=== PATIENT | female | born 1945 | race Caucasian/White ===

== ENCOUNTER → 2016-08-23 | Outpatient (CLI) | payer OTHER ==
--- NOTE | 2016-08-23 16:48 | MA ---
Screening Digital Mammogram With iCAD Analysis Clinical Indications: Routine screening. Her paternal grandmother was diagnosed with breast cancer in her 70s. Technique: Standard cephalocaudal and mediolateral oblique projections were obtained. This examinatio n was processed by the iCAD computer aided detection system. Comparison: July 2015, June 2014, May 2013, December 2011, December 2009, November 2008, July 2007. Breast density: Type C; Heterogeneously dense. Findings: CAD was reviewed. No masses, suspicious calcifications or other signs of malignancy are id entified. There has been no significant change in the appearance of either breast. Impression: Negative mammogram. BI-RADS 1. Recommendation: Routine mammographic screening in one year as long as physical examination is negativ e in this patient with heterogeneously dense breasts. [facility] will send a result letter to the patient. Dense breast parenchyma diminishes mammographic sensitivity. Negative mammography should not preclude additional workup of a clinically suspicious finding. The patient's information is entered into a reminder system with a target due date for her next mammo gram.
== END ==
LOC: CIMAGING 12:13
DX: Z12.31 Encounter for screening mammogram for malignant neoplasm of breast (principal); Z80.3 Family history of malignant neoplasm of breast
CPT/HCPCS: G0202

== ENCOUNTER 2017-07-13 17:41 | Inpatient (IN) | payer OTHER ==
[2017-07-13] MEDS ORDERED: ONDANSETRON 4 MG/2 ML VIAL IVP ONE ×2 (18:11→21:27)
[2017-07-13] MEDS ORDERED: NS 1,000 ML IV ONE ×2 (18:11→18:46)
--- NOTE | 2017-07-13 18:27 | CPEKG ---
Heart Rate: 77 RR Interval: 779 P-R Interval: 152 QRSD Interval: 102 QT Interval: 404 QTC Interval: 458 P [place]: 95 QRS [place]: 14 T Wave [place]: 52 EKG Severity - ABNORMAL ECG - EKG Impression: SINUS RHYTHM EKG Impression: MULTIPLE VENTRICULAR PREMATURE COMPLEXES EKG Impression: BORDERLINE R WAVE PROGRESSION, ANTERIOR LEADS Electronically Signed By: Kwadwo Butler 13-Jul-2017 20:54:35
[2017-07-13] MEDS ORDERED: HYDROmorphONE/DILAUDID 1 MG/ML INJ IVP ONE ×3 (18:34→21:04)
--- NOTE | 2017-07-13 18:40 | EDPHY ---
H & P Time Seen by Provider: 07/13/17 18:20 HPI/ROS: Chief complaint. Abdominal pain HPI. 71-year-old female presents emergency department with abdominal pain that began at noon. She had a normal morning. Since then she has had progressive, severe abdominal pain. She describes as crampy and sharp and constant in the mid low abdomen. No radiation to her back. Nausea but no vomiting. No gas or stool per rectum. No similar symptoms previously. Previous appendectomy hysterectomy, oophorectomy. No fever. No urinary symptoms. No chest discomfort or trouble breathing. ROS Constitutional. no fever/chills, no weakness Eyes. no problems with vision ENT. no sore throat, no nasal drainage Cardiovascular. no chest pain Respiratory. no shortness of breath, no cough Abdominal. Abdominal pain with nausea but no vomiting or diarrhea . no problems urinating MS. no calf pain/swelling, no neck/back pain, no joint pain Skin. no rash Lymph. no swollen glands Neuro. no headache, no dizziness, no difficulty walking or with speech Past Medical/Surgical History: Hysterectomy, appendectomy, hypertension, coronary artery disease Social History: , nonsmoker, no alcohol Smoking Status: Former smoker Physical Exam: General Appearance: Alert well-developed female moderate to severe distress vital signs are stable Eyes: Pupils equal and round no pallor or injection. ENT, Mouth: Mucous membranes are moist. Respiratory: There are no retractions, lungs are clear to auscultation. Cardiovascular: Regular rate and rhythm. Gastrointestinal: Abdomen is soft and diffusely tender. No masses. Decreased bowel sounds Neurological: Awake and alert, sensory and motor exams grossly normal. Skin: Warm and dry, no rashes. Musculoskeletal: Neck is supple nontender. Extremities symmetrical, full range of motion. Psychiatric: Patient is oriented X 3, there is no agitation. Constitutional: Initial Vital Signs Heart Rate 70 07/13/17 17:52 Respiratory Rate 16 07/13/17 17:52 Blood Pressure 172/71 H 07/13/17 17:52 O2 Sat (%) 99 07/13/17 17:52 O2 Delivery Mode Nasal Cannula O2 (L/minute) 2 Allergies/Adverse Reactions: No Known Allergies Allergy (Verified 07/13/17 17:51) Home Medications: Medication Instructions Recorded Fluticasone Nasal [Flonase Nasal 04/14/14 [place]] Gabapentin [Neurontin 300 MG (*)] 04/14/14 Lisinopril [Zestril 20 mg (*)] 04/14/14 Aspirin 05/03/16 Atorvastatin Calcium [Lipitor 40 05/03/16 mg (*)] Herbals/Supplements -Info Only 05/03/16 Acetaminophen Extra Strength 2 tab PO BID 05/06/16 Medical Decision Making - Diagnostics Imaging Results: Imaging Impressions Abdomen CT 07/13/17 18:47 Impression: 1. Dilated small bowel in the left lower quadrant with transition points in the left pelvis, consistent with small bowel obstruction. 2. Small volume of ascites. 3. Gallbladder distention without evidence of cholecystitis. 4. Severe degenerative change in the lumbar spine with multilevel spinal canal narrowing. 5. Additional findings as above. Findings discussed with ALEX QUILES 07/13/2017 at 19:33. CT shows small bowel obstruction reviewed by me and discussed with Dr. Stone Procedures: IV normal saline. Dilaudid for pain. Zofran for nausea I-STAT for creatinine for CT ED Course/Re-evaluation: Serial evaluations and then re-evaluation again at 7:45 p.m.. The patient, her , and I discussed imaging study results, treatment plan including recommendation for admission. They expressed understanding and agreement I consulted and discussed case with Dr. Donovan, on-call for surgery who will see the patient in the emergency department Differential Diagnosis: I considered volvulus, small-bowel obstruction, aortic dissection - Data Points Laboratory Results: Laboratory Results 07/13/17 18:10 07/13/17 18:10 07/13/17 07/13/17 07/13/17 18:10 18:10 18:10 WBC 7.94 10^3/uL 10^3/uL (3.80-9.50) RBC 3.90 10^6/uL L 10^6/uL (4.18-5.33) Hgb 14.2 g/dL g/dL (12.6-16.3) Hct 40.5 % % (38.0-47.0) MCV 103.8 fL H fL (81.5-99.8) MCH 36.4 pg H pg (27.9-34.1) MCHC 35.1 g/dL g/dL (32.4-36.7) RDW 12.3 % % (11.5-15.2) Plt Count 202 10^3/uL 10^3/uL (150-400) MPV 9.6 fL fL (8.7-11.7) Neut % (Auto) 63.4 % % (39.3-74.2) Lymph % (Auto) 28.1 % % (15.0-45.0) [place] % (Auto) 7.2 % % (4.5-13.0) Eos % (Auto) 0.5 % L % (0.6-7.6) Baso % (Auto) 0.5 % % (0.3-1.7) Nucleat RBC Rel Count 0.0 % % (0.0-0.2) Absolute Neuts (auto) 5.04 10^3/uL 10^3/uL (1.70-6.50) Absolute Lymphs (auto) 2.23 10^3/uL 10^3/uL (1.00-3.00) Absolute Monos (auto) 0.57 10^3/uL 10^3/uL (0.30-0.80) Absolute Eos (auto) 0.04 10^3/uL 10^3/uL (0.03-0.40) Absolute Basos (auto) 0.04 10^3/uL 10^3/uL (0.02-0.10) Absolute Nucleated RBC 0.00 10^3/uL 10^3/uL (0-0.01) Immature Gran % 0.3 % % (0.0-1.1) Immature Gran # 0.02 10^3/uL 10^3/uL (0.00-0.10) PT 12.5 SEC SEC (12.0-15.0) INR 0.91 (0.83-1.16) APTT 29.8 SEC SEC (23.0-38.0) Sodium 141 mEq/L mEq/L (134-144) Potassium 3.8 mEq/L mEq/L (3.5-5.2) Chloride 100 mEq/L mEq/L (97-110) Carbon Dioxide 27 mEq/l mEq/l (22-31) Anion Gap 14 mEq/L mEq/L (8-16) BUN 17 mg/dL mg/dL (7-23) Creatinine 0.7 mg/dL mg/dL (0.6-1.0) Estimated GFR > 60 Glucose 106 mg/dL H mg/dL (70-100) Calcium 10.1 mg/dL mg/dL (8.5-10.4) Total Bilirubin 1.7 mg/dL H mg/dL (0.1-1.4) Conjugated Bilirubin 0.3 mg/dL mg/dL (0.0-0.5) Unconjugated Bilirubin 1.4 mg/dL H mg/dL (0.0-1.1) AST 33 IU/L IU/L (14-46) ALT 48 IU/L IU/L (9-52) Alkaline Phosphatase 84 IU/L IU/L (38-126) Troponin I < 0.012 ng/mL ng/mL (0.000-0.034) Total Protein 7.5 g/dL g/dL (6.3-8.2) Albumin 4.6 g/dL g/dL (3.5-5.0) Lipase 19 IU/L L IU/L (23-300) Medications Given: Discontinued Medications Hydromorphone HCl (Dilaudid) 1 mg IVP EDNOW ONE Stop: 07/13/17 18:35 Last Admin: 07/13/17 18:37 Dose: 1 mg Hydromorphone HCl (Dilaudid) 1 mg IVP EDNOW ONE Stop: 07/13/17 18:47 Last Admin: 07/13/17 18:53 Dose: 1 mg Sodium Chloride (Ns) 1,000 mls @ 0 mls/hr IV ONCE ONE PRN Reason: Wide Open Stop: 07/13/17 18:12 Last Admin: 07/13/17 18:20 Dose: 1,000 mls Sodium Chloride (Ns) 1,000 mls @ 0 mls/hr IV EDNOW ONE; Wide Open PRN Reason: Protocol Stop: 07/13/17 18:47 Last Admin: 07/13/17 18:53 Dose: 1,000 mls Ondansetron HCl (Zofran) 4 mg IVP EDNOW ONE Stop: 07/13/17 18:12 Last Admin: 07/13/17 18:20 Dose: 4 mg Departure - Departure Disposition: [facility] Acute Clinical Impression: Small bowel obstruction Condition: Fair Referrals: Kaya Gonzalez MD [Primary Care Provider] - As per Instructions
[2017-07-13] MEDS ORDERED: IOPAMIDOL (ISOVUE-300) 100 ML BTL ONE (18:49)
[2017-07-13 18:53] LABS: % IMMATURE GRANULYOCYTES 0.3 % (0.0-1.1); ABSOLUTE IMMATURE GRANULOCYTES 0.02 10^3/uL (0.00-0.10); ADD DIFF? NO; ADD MORPH? NO; ADD SCAN? NO; ATYPICAL LYMPHOCYTE FLAG 0 (0-99); FRAGMENT RBC FLAG 0 (0-99); HEMATOCRIT 40.5 % (38.0-47.0); HEMOGLOBIN 14.2 g/dL (12.6-16.3); LEFT SHIFT FLG 0 (0-99); LIPEMIA HEMOLYSIS FLAG 90 (0-99); MEAN CELL HEMOGLOBIN 36.4 pg (27.9-34.1); MEAN CELL HEMOGLOBIN CONCENTR. 35.1 g/dL (32.4-36.7); MEAN CELL VOLUME 103.8 fL (81.5-99.8); MEAN PLATELET VOLUME 9.6 fL (8.7-11.7); PLATELET CLUMPS FLAG 0 (0-99); PLATELET COUNT 202 10^3/uL (150-400); RED CELL DISTRIBUTION WIDTH 12.3 % (11.5-15.2)
[2017-07-13 18:59] LABS: ALANINE AMINOTRANSFERASE 48 IU/L (9-52); ALBUMIN 4.6 g/dL (3.5-5.0); ALKALINE PHOSPHATASE 84 IU/L (38-126); ANION GAP 14 mEq/L (8-16); ASPARTATE AMINOTRANSFERASE 33 IU/L (14-46); BILIRUBIN,TOTAL 1.7 mg/dL (0.1-1.4); BILIRUBIN-CONJUGATED 0.3 mg/dL (0.0-0.5); BILIRUBIN-UNCONJUGATED 1.4 mg/dL (0.0-1.1); CALCIUM 10.1 mg/dL (8.5-10.4); CARBON DIOXIDE 27 mEq/l (22-31); CHLORIDE 100 mEq/L (97-110); CREATININE 0.7 mg/dL (0.6-1.0); GLOMERULAR FILTRATION RATE > 60; GLUCOSE 106 mg/dL (70-100); POTASSIUM 3.8 mEq/L (3.5-5.2); SODIUM 141 mEq/L (134-144); TOTAL PROTEIN 7.5 g/dL (6.3-8.2)
[2017-07-13 19:11] LABS: TROPONIN I < 0.012 ng/mL (0.000-0.034)
[2017-07-13 19:17] LABS: INR 0.91 (0.83-1.16); PROTIME(PATIENT) 12.5 SEC (12.0-15.0)
[2017-07-13 19:18] LABS: APTT 29.8 SEC (23.0-38.0)
[2017-07-13] MEDS ORDERED: BUPIVACAINE 0.5% 30 ML SDV ONE (21:04)
[2017-07-13] MEDS ORDERED: LIDOCAINE 2% 5 ML SDV ONE (21:17)
[2017-07-13] MEDS ORDERED: PROPOFOL 200 MG/20 ML VIAL ONE (21:17)
[2017-07-13] MEDS ORDERED: ROCURONIUM 50 MG/5 ML VIAL ONE (21:17)
[2017-07-13] MEDS ORDERED: ONDANSETRON 4 MG/2 ML VIAL IVP PRN ×2 (21:22→23:43)
[2017-07-13] MEDS ORDERED: LR 500 ML IV PRN (21:22)
[2017-07-13] MEDS ORDERED: NALOXONE HCL 0.4 MG/ML INJ IVP PRN (21:22)
[2017-07-13] MEDS ORDERED: HYDROmorphONE/DILAUDID 1 MG/ML INJ IVP PRN (21:22)
[2017-07-13] MEDS ORDERED: ALBUTEROL 3 ML DEYVIAL IH PRN (21:22)
[2017-07-13] MEDS ORDERED: ceFAZolin 2 GM in D5W 100 ML IV ONE (21:24)
--- NOTE | 2017-07-13 21:24 | PDANEPAE ---
ANE History of Present Illness Laparoscopic Lysis of Adhesion ANE Past Medical History - Cardiovascular History Hx Hypertension: Yes Hx Arrhythmias: No Hx Chest Pain: No Hx Coronary Artery / Peripheral Vascular Disease: Yes Hx CHF / Valvular Disease: No Hx Palpitations: No Cardiovascular History Comment: cad. stents x2 - Pulmonary History Hx COPD: No Hx Asthma/Reactive Airway Disease: No Hx Recent Upper Respiratory Infection: No Hx Oxygen in Use at Home: No Hx Sleep Apnea: No - Neurologic History Hx Cerebrovascular Accident: No Hx Seizures: No Hx Dementia: No Neurologic History Comment: raynauds - Endocrine History Hx Diabetes: No - Renal History Hx Renal Disorders: No - Liver History Hx Hepatic Disorders: No - Neurological & Psychiatric Hx Hx Neurological and Psychiatric Disorders: No - Cancer History Hx Cancer: No - Congenital Disorder History Hx Congenital Disorders: No - GI History Hx Gastrointestinal Disorders: Yes Gastrointestinal History Comment: hx of reflux. hx of polyps - Other Health History Other Health History: none - Chronic Pain History Chronic Pain: No - Surgical History Prior Surgeries: stents x2. colon with Raju 05/24/13. colon with Bersentes 26/05. acdf c6-7 c7-t2 with Nabeel 02/15/11. hysterectomy. appy. repair of left tib/ fib ANE Review of Systems Review of Systems: ANE Patient History - Allergies Allergies/Adverse Reactions: No Known Allergies Allergy (Verified 07/13/17 17:51) - Home Medications Home Medications: Fluticasone Nasal [Flonase Nasal [place]] 2 sprays NASAL HS 04/14/14 [Last Taken 07/12/17] Gabapentin [Neurontin 300 MG (*)] 600 mg PO BID 04/14/14 [Last Taken 07/13/17] Atorvastatin Calcium [Lipitor 40 mg (*)] 40 mg PO HS 05/03/16 [Last Taken ] Acetaminophen [Tylenol ES 500 mg (*)] 1,000 mg PO BID 07/13/17 [Last Taken 07/13] Ascorbic Acid [Vitamin C 500 mg (*)] 1,000 mg PO DAILY 07/13/17 [Last Taken Unknown] Aspirin [Aspirin 81mg (*)] 81 mg PO HS 07/13/17 [Last Taken 07/12/17] Cholecalciferol Vit D3 [Vitamin D3 (*)] 1,000 units PO DAILY 07/13/17 [Last Taken Unknown] Gabapentin [Neurontin 300 MG (*)] 600 mg PO DAILY PRN 07/13/17 [Last Taken Unknown] Herbals/Supplements -Info Only 1 ea PO DAILY 07/13/17 [Last Taken Unknown] Losartan Potassium [Cozaar 25 mg (*)] 25 mg PO HS 07/13/17 [Last Taken 07/12/17] Multivitamins [Multivitamin (*)] 1 each PO DAILY 07/13/17 [Last Taken Unknown] Pantoprazole Sodium 20 mg PO DAILY 07/13/17 [Last Taken Unknown] - Smoking Hx Smoking Status: Former smoker - Family Anes Hx Family Hx Anesthesia Complications: sister and daughter wake up with anesthesia ANE Labs/Vital Signs - Labs Result Diagrams: 07/13/17 18:10 07/13/17 18:10 - Vital Signs Blood Pressure: 139/54 Heart Rate: 68 Respiratory Rate: 18 O2 Sat (%): 99 ANE Physical Exam - Airway Neck exam: FROM Mallampati Score: Class 2 - Pulmonary Pulmonary: clear to auscultation - Cardiovascular Cardiovascular: regular rate and rhythym - ASA Status ASA Status: III ANE Anesthesia Plan Anesthesia Plan: general endotracheal anesthesia
[2017-07-13] MEDS ORDERED: ceFAZolin 2 GM/SWFI 2 GM/20 ML SYR IVP ONE (21:30)
[2017-07-13] MEDS ORDERED: LR 1,000 ML IV ONE (21:38)
[2017-07-13] MEDS ORDERED: fentaNYL 100 MCG/2 ML INJ ONE ×2 (21:52→23:45)
--- NOTE | 2017-07-13 21:54 | GHP ---
[f rep st] HISTORY AND PHYSICAL DATE OF ADMISSION: 07/13/2017 CHIEF COMPLAINT: Small bowel obstruction. HISTORY OF PRESENT ILLNESS: The patient is a 71-year-old woman who had a normal bowel movement this morning. She developed abrupt onset of abdominal pain that she initially thought was a gas pain. It worsened in severity, and she started developing nausea. She stopped passing flatus. Her pain escalated so much that she was shaking by time she presented to the emergency room. She has had 2 doses of Dilaudid since being in the ER, and although her overall pain is better, she still has pain to palpation in the left lower quadrant, to percussion and palpation. She had a CT scan of her abdomen and pelvis that showed an abrupt transition in the left lower quadrant with mesenteric edema. PAST MEDICAL HISTORY: Hypertension, hyperlipidemia, coronary artery disease. PAST SURGICAL HISTORY: Hysterectomy, appendectomy. SOCIAL HISTORY: She is . She has a daughter. She is a nonsmoker. REVIEW OF SYSTEMS: 10-point review of systems negative except per HPI. PHYSICAL EXAMINATION: VITAL SIGNS: 36.6, 68, 139/54, 18, 99%. GENERAL: Pleasant, well-nourished, well-groomed woman, lying in bed on gurney, at bedside. HEENT: Normocephalic. No gross hearing deficits. Mucous membranes moist. Pupils equal and round. No scleral icterus. LUNGS: Clear to auscultation bilaterally. No increased work of breathing. CARDIAC: Regular rate. ABDOMEN: I did not appreciate any bowel sounds. She is somewhat soft, but she is distinctly tender in the left lower quadrant to percussion as well as to palpation. SKIN: Warm and dry. PSYCHIATRIC: Mood and affect normal. NEUROLOGIC: Grossly intact. LAB RESULTS: Reviewed, per HPI. IMPRESSION/PLAN: The patient is a 71-year-old woman with acute bowel obstruction. We discussed NG placement. We also discussed going to the OR for laparoscopy, possible laparotomy. I am in favor of early operative intervention , as she still has pain despite IV pain medications that correlates to the findings on the CT with a high-grade transition point. We discussed that this could be a negative laparoscopy or may need a laparotomy. We also discussed that small bowel resection may be needed. We discussed the risks and benefits including, but not limited to, stroke, heart attack, , blood clots, infection, bleeding, damage to surrounding structures. We spent time discussing NG decompression. She had her questions answered to her satisfaction and would like to proceed with operating room thank you. /[id number]/MODL MAITE
[2017-07-13] MEDS ORDERED: ONDANSETRON 4 MG/2 ML VIAL ONE (22:34)
[2017-07-13] MEDS ORDERED: DEXAMETHASONE 4 MG/ML VIAL ONE (22:34)
[2017-07-13] MEDS ORDERED: SUGAMMADEX SODIUM 500 MG/5 ML VIAL IVP ONE (23:28)
--- NOTE | 2017-07-13 23:40 | POSTANESTH ---
Post Anesthetic Evaluation Cardiovascular Status: Normal, Stable Respiratory Status: Normal, Stable Level of Consciousness/Mental Status: Can Participate in Eval, Alert and Oriented Pain Control: Adequate, Prn Tx Ordered Nausea/Vomiting Control: Adequate, Prn Tx Ordered Complications Possibly Related to Anesthesia: None Noted
[2017-07-13] MEDS ORDERED: ACETAMINOPHEN 325 MG TAB PO PRN (23:43)
--- NOTE | 2017-07-13 23:47 | POSTOPPROG ---
Post Op Note Date of Operation: 07/13/17 Surgeon: Patricia Donovan Anesthesiologist: suzanne Anesthesia: GET(General Endotracheal) Pre-op Diagnosis: small bowel obstruction Post-op Diagnosis: complete sbo Indication: 71 yo with abdominal pain and distinct transition point Procedure: lap lysis of adhesions Findings: omentum circumferential around small bowel, fluid in pelvis Inf/Abcess present in the surg proc area at time of surgery?: No EBL: Minimal
[2017-07-13] MEDS: fentaNYL 100 MCG/2 ML INJ IVP PRN (23:49)
[2017-07-14] MEDS: fentaNYL 100 MCG/2 ML INJ IVP PRN (00:14)
[2017-07-14] MEDS: KETOROLAC 15 MG/1 ML SDV IVP SCH ×5 (00:47→23:36)
[2017-07-14] MEDS: D5W 1/2 NS W/ 20 KCl/L 1,000 ML IV SCH ×3 (00:49→23:37)
[2017-07-14 05:13] LABS: % IMMATURE GRANULYOCYTES 0.4 % (0.0-1.1); ABSOLUTE IMMATURE GRANULOCYTES 0.04 10^3/uL (0.00-0.10); ADD DIFF? NO; ADD MORPH? NO; ADD SCAN? NO; ATYPICAL LYMPHOCYTE FLAG 0 (0-99); FRAGMENT RBC FLAG 0 (0-99); HEMATOCRIT 34.5 % (38.0-47.0); LEFT SHIFT FLG 0 (0-99); LIPEMIA HEMOLYSIS FLAG 90 (0-99); MEAN CELL HEMOGLOBIN 36.8 pg (27.9-34.1); MEAN CELL HEMOGLOBIN CONCENTR. 34.8 g/dL (32.4-36.7); MEAN CELL VOLUME 105.8 fL (81.5-99.8); MEAN PLATELET VOLUME 9.2 fL (8.7-11.7); PLATELET CLUMPS FLAG 0 (0-99); PLATELET COUNT 180 10^3/uL (150-400); RED BLOOD CELL COUNT 3.26 10^6/uL (4.18-5.33); RED CELL DISTRIBUTION WIDTH 12.2 % (11.5-15.2)
[2017-07-14 05:32] LABS: ANION GAP 9 mEq/L (8-16); CALCIUM 8.6 mg/dL (8.5-10.4); CARBON DIOXIDE 26 mEq/l (22-31); CHLORIDE 105 mEq/L (97-110); CREATININE 0.7 mg/dL (0.6-1.0); GLOMERULAR FILTRATION RATE > 60; GLUCOSE 165 mg/dL (70-100); POTASSIUM 4.6 mEq/L (3.5-5.2); SODIUM 140 mEq/L (134-144)
--- NOTE | 2017-07-14 07:56 | GOP ---
[f rep st] OPERATIVE REPORT DATE OF OPERATION: 07/13/2017 SURGEON: Patricia Donovan MD ANESTHESIA: General. ANESTHESIOLOGIST: Rudy Thapa DO. PREOPERATIVE DIAGNOSIS: Small-bowel obstruction. POSTOPERATIVE DIAGNOSIS: Complete small bowel obstruction. PROCEDURE PERFORMED: Laparoscopy with lysis of adhesions. FINDINGS: Inflamed loop of small bowel with transition point due to an adhesive band. SPECIMENS: Peritoneal fluid. ESTIMATED BLOOD LOSS: Minimal. INDICATIONS: The patient is a 71-year-old woman, who presented to the hospital with abdominal pain that was not controlled at home. She presented to the ER and a CT scan showed a distinct transition point in the left lower quadrant. Due to her continued pain despite pain medications and the pain being in the location of the high-grade bowel obstruction I elected to take her to the operating room. DESCRIPTION OF PROCEDURE: Patient was brought into the operating room, placed supine on the table, and general anesthesia was administered. Her abdomen was prepped and draped in the usual sterile fashion. I infiltrated all sites with 0.5% Marcaine prior to making incisions. I made an incision by her umbilicus. I elevated it. I inserted the Veress needle. It passed the hang drop test. I explored her abdomen. She did have some omentum adhered to her anterior midline wall as well as a loop of bowel in her right lower quadrant. I placed 2 additional 5 mm trocars on the right side. Using Endo Jennifer I removed the loop of bowel from the anterior abdominal wall. I was able to visualize each side of the omentum and using the Harmonic reduced the omentum from the anterior abdominal wall. I then could explore her abdomen further and I found a large loop of extremely congested bowel. As I examined this further she had a large piece of mesentery mixed with omentum completely surrounding the mid small bowel causing a near complete bowel obstruction. I was able to lyse this adhesion with scissors. The bowel was initially extremely congested. While seeing if the bowel would recover, I explored the remaining part of her abdomen and did not find additional abnormalities. I elected to make a small incision to bring the bowel to the surface to palpate it and make sure that there were no other concerns. I divided the skin subcutaneous tissue. I elevated the fascia, divided this, and I entered the peritoneal cavity. I placed a small Suraj wound protector. I extracorporealized this segment of small bowel. It was continuing to look healthier. I placed a Doppler on the small vessels and was able to hear blood flow. As the bowel was returning nicely to its normal color and diameter I elected not to perform a small bowel resection. I returned the bowel to the abdominal cavity. I closed the fascia with 0 PDS. I closed skin with 3-0 Vicryl followed by 4-0 Monocryl. I closed the port sites with 4-0 Monocryl. Dermabond applied. She was awakened in the operating room, extubated, transferred to PACU in stable condition. /[id number]/MODL MTDD
[2017-07-14] MEDS ORDERED: BENZOCAINE UNIT DOSE SPRAY HURRICAINE MM PRN (10:31)
[2017-07-14] MEDS: CEPACOL LOZENGE PO PRN ×3 (10:51→19:54)
--- NOTE | 2017-07-14 14:43 | ASMTCMCOM ---
CM Note CM Note Notes: Spoke w/RN, anticipate pt will dc w/support of when medically stable. CM available for any changes. Date Signed: 07/14/2017 02:43 PM Electronically Signed By:Lashay Smith RN
--- NOTE | 2017-07-14 17:25 | SOAPPROG ---
SOAP Progress Note Assessment/Plan: Assessment/Plan: 71yo F POD#1 s/p lap lysis of adhesion for complete SBO NG tube in place - continue to suction Pain controlled Small amount of flatus earlier today Dispo: continue inpatient until return of bowel function S: NG tube is extremely uncomfortable at nose and in throat. pain in abdomen when she gets up to walk. no nausea. O: laying in bed, uncomfortably holding NG tube NG R nare - brownish appearing output No increased WOB Abd softly distended, hypoactive BS, incisions CDI Objective: Vital Signs Temp Pulse Resp BP Pulse Ox 37.0 C 67 14 136/55 H 98 07/14/17 16:00 07/14/17 16:00 07/14/17 16:00 07/14/17 16:00 07/14/17 16:00 Laboratory Results 07/14/17 04:45 07/14/17 04:45 07/13/17 07/14/17 07/15/17 05:59 05:59 05:59 Intake Total 2000 Output Total 0 Balance 1999 PT 12.5 SEC (12.0-15.0) 07/13/17 18:10 INR 0.91 (0.83-1.16) 07/13/17 18:10 ICD10 Worksheet Patient Problems: Problems Problem Status Onset Small bowel obstruction Acute Angina pectoris Acute CAD (coronary artery disease) Acute
[2017-07-15] MEDS: KETOROLAC 15 MG/1 ML SDV IVP SCH ×3 (05:30→17:43)
[2017-07-15] MEDS: CEPACOL LOZENGE PO PRN ×3 (05:33→11:27)
--- NOTE | 2017-07-15 13:17 | SOAPPROG ---
SOAP Progress Note Assessment/Plan: Assessment: STATUS POST HEAL LYSIS FOR SMALL BOWEL OBSTRUCTION/DOING WELL/POSITIVE FLATUS/ MODERATE NG OUTPUT WOUND OKAY/ABDOMEN SOFT WITH POSITIVE BOWEL SOUNDS Plan: CLAMP NG AND IF TOLERATED START CLEAR LIQUIDS 07/15/17 13:17 Objective: Vital Signs Temp Pulse Resp BP Pulse Ox 36.4 C 62 18 142/66 H 98 07/15/17 12:03 07/15/17 12:03 07/15/17 12:03 07/15/17 12:03 07/15/17 12:03 Laboratory Results 07/14/17 04:45 07/14/17 04:45 07/14/17 07/15/17 07/16/17 05:59 05:59 05:59 Intake Total 1999 1180 Output Total 0 810 Balance 1999 370 PT 12.5 SEC (12.0-15.0) 07/13/17 18:10 INR 0.91 (0.83-1.16) 07/13/17 18:10 ICD10 Worksheet Patient Problems: Problems Problem Status Onset Small bowel obstruction Acute Angina pectoris Acute CAD (coronary artery disease) Acute
[2017-07-15] MEDS: D5W 1/2 NS W/ 20 KCl/L 1,000 ML IV SCH ×2 (17:43→21:53)
[2017-07-16] MEDS: KETOROLAC 15 MG/1 ML SDV IVP SCH ×4 (01:04→17:08)
[2017-07-16] MEDS: CEPACOL LOZENGE PO PRN ×2 (10:55→17:07)
--- NOTE | 2017-07-16 11:14 | SOAPPROG ---
SOAP Progress Note Assessment/Plan: Assessment: STATUS POST HEAL LYSIS FOR SMALL BOWEL OBSTRUCTION/DOING WELL/POSITIVE FLATUS/ MODERATE NG OUTPUT WOUND OKAY/ABDOMEN SOFT WITH POSITIVE BOWEL SOUNDS Plan: CLAMP NG AND IF TOLERATED START CLEAR LIQUIDS 07/15/17 13:17 07/16/17 11:13 abd soft/ wound ok/ afebrile/ tolerated ng clamping/ +flatus/ plan dc ng and start clears Objective: Vital Signs Temp Pulse Resp BP Pulse Ox 36.7 C 73 18 154/63 H 90 L 07/16/17 08:00 07/16/17 08:00 07/16/17 08:00 07/16/17 08:00 07/16/17 08:00 Laboratory Results 07/14/17 04:45 07/14/17 04:45 07/15/17 07/16/17 07/17/17 05:59 05:59 05:59 Intake Total 1180 900 Output Total 810 1300 Balance 370 -400 PT 12.5 SEC (12.0-15.0) 07/13/17 18:10 INR 0.91 (0.83-1.16) 07/13/17 18:10 ICD10 Worksheet Patient Problems: Problems Problem Status Onset Small bowel obstruction Acute Angina pectoris Acute CAD (coronary artery disease) Acute
[2017-07-17] MEDS: KETOROLAC 15 MG/1 ML SDV IVP SCH ×2 (00:38→06:13)
--- NOTE | 2017-07-17 07:36 | SOAPPROG ---
SOAP Progress Note Assessment/Plan: Assessment: STATUS POST HEAL LYSIS FOR SMALL BOWEL OBSTRUCTION/DOING WELL/POSITIVE FLATUS/ MODERATE NG OUTPUT WOUND OKAY/ABDOMEN SOFT WITH POSITIVE BOWEL SOUNDS Plan: CLAMP NG AND IF TOLERATED START CLEAR LIQUIDS 07/15/17 13:17 07/16/17 11:13 abd soft/ wound ok/ afebrile/ tolerated ng clamping/ +flatus/ plan dc ng and start clears 07/17/17 07:35 feels great/ +flatus/ afebrile/ advance diet/ home today Objective: Vital Signs Temp Pulse Resp BP Pulse Ox 36.7 C 73 12 159/74 H 92 07/17/17 04:00 07/17/17 04:00 07/17/17 04:00 07/17/17 04:00 07/17/17 04:00 Laboratory Results 07/14/17 04:45 07/14/17 04:45 07/16/17 07/17/17 07/18/17 05:59 05:59 05:59 Intake Total 900 1250 Output Total 1300 Balance -400 1250 PT 12.5 SEC (12.0-15.0) 07/13/17 18:10 INR 0.91 (0.83-1.16) 07/13/17 18:10 ICD10 Worksheet Patient Problems: Problems Problem Status Onset Small bowel obstruction Acute Angina pectoris Acute CAD (coronary artery disease) Acute
[2017-07-17 08:30] VITALS: BP 157/74; PULSE 69; RESP 18; TEMP 97.9; O2SAT 98
--- NOTE | 2017-07-17 14:50 | ASDISCHSUM ---
Discharge Information Plan Status:Home with No Needs Medically Cleared to Leave:07/16/2017 Discharge Date:07/17/2017 10:53 AM CM D/C Disposition: ADT D/C Disposition:Home, Routine, Self-Care Projected Discharge Date:07/17/2017 12:00 AM Transportation at D/C: Discharge Delay Reason: Follow-Up Date:07/17/2017 12:00 AM Discharge Slot: Final Diagnosis: Placement Information Patient Contact Information Contact Name:ERIKA Relationship: Address:[address] City:[facility] Phone: [facility]/Zip Code:[place] [address] Email: Financial Information Financial Class:[facility] Primary Plan Desc:[employer] OPEN ACC LOCAL Primary Plan Number:[id number] Secondary Plan Desc:MEDICARE INPATIENT Secondary Plan Number:[id number] Assessment Information [facility] CM Progress Note CM Note CM Note Notes: Spoke w/RN, anticipate pt will dc w/support of when medically stable. CM available for any changes. Date Signed: 07/14/2017 02:43 PM Electronically Signed By:Lashay Smith RN Intervention Information
== END 2017-07-17 10:53 | disposition home or self-care (01) | DRG 337 ==
LOC: F3E 07-14 00:30
PROVIDERS: ADMIT Surgery; ATTEND Surgery
PROC: 0DNE4ZZ Release Large Intestine, Percutaneous Endoscopic Approach (ICD-10-PCS; principal; 2017-07-13 21:30)
DX: K56.52 Intestinal adhesions [bands] with complete obstruction (principal); I10 Essential (primary) hypertension; I25.10 Atherosclerotic heart disease of native coronary artery without angina pectoris; Z95.5 Presence of coronary angioplasty implant and graft; E78.5 Hyperlipidemia, unspecified; Z98.1 Arthrodesis status
CPT/HCPCS: 82947-QW; 96374; J0690; J1100; J1170; J1885; J2405; J2704; J3010; Q9967